=== PATIENT | female | born 1965 | race Caucasian/White ===

== ENCOUNTER 2021-09-09 14:44 | Emergency (ER) | payer BC ==
--- OUTSIDE RECORDS SUMMARY | 2021-09-09 14:49 | XMS REPORT | Continuity of Care Document ---
:[address] [facility] t Address [address] [place] [address] Care Team Providers Name Role Phone JOYCELYN MORIN Primary Care Physician Unavailable EMANUEL Attending Clinician Unavailable ANAND Attending Clinician Unavailable DOROTEO Attending Clinician Unavailable URSS Attending Clinician Unavailable JIMENA Attending Clinician Unavailable Payers Payer Name Policy Type Policy Number Effective Date Expiration Date S billy [facility] [id number] 2019 00:00:00 2020 00:00:00 Problems This patient has no known problems. Allergies, Adverse Reactions, Alerts This patient has no known allergies or adverse reactions. Medications This patient has no known medications. Procedures This patient has no known procedures. Encounters Start End Encounter Admission Attending Care Care Encounter Source Date/Time Date/Time Type Type Clinicians Facility Department ID 2021-09-05 Outpatient EMANUEL, [facility] [id number] [place] 11:40:06 [place]ACE [id number] [facility] 2021-08-09 Outpatient EMANUEL, [facility] [id number] [place] 13:52:21 [place]ACE [id number] [facility] 2021-08-07 Outpatient ANAND, [facility] [id number] [place] 07:44:38 [facility] [id number] [facility] 2021-08-05 Outpatient [facility] [id number] [place] 10:43:54 [facility] 2021-08-01 Outpatient ANAND, [facility] [id number] [place] 16:08:20 [facility] [id number] [facility] 2021-07-17 Outpatient DOROTEO, [facility] [id number] [place] 10:09:25 SAUNDRA [id number] [facility] 2021-07-10 Outpatient [facility] [id number] [place] 15:00:08 [id number] [facility] 2021-07-08 Outpatient [facility] [id number] [place] 15:09:05 [id number] [facility] 2021-06-12 [place] [id number] [place] 01:04:26 PIEDAD [id number] [facility] 2021-06-09 Outpatient [facility] [id number] [place] 01:05:54 [id number] [facility] 2021-06-05 Outpatient JIMENA, [facility] [id number] [place] 10:06:40 REEJU [id number] [facility] 2021-05-24 Outpatient [facility] [id number] [place] 09:26:28 [id number] [facility] 2021-05-21 Outpatient [facility] [id number] [place] 11:56:55 [id number] [facility] 2021-04-26 Outpatient [facility] [id number] [place] 14:04:43 [facility] 2021-04-24 Outpatient DOROTEO, [facility] [id number] [place] 10:41:25 [facility] 2021-04-19 Outpatient [facility] [id number] [place] 09:41:11 [facility] 2021-04-03 Outpatient DOROTEO, [facility] [id number] [place] 10:01:58 [facility] 2021-04-02 Outpatient [facility] [id number] [place] 14:49:57 [facility] 2021-04-01 Outpatient [facility] [id number] [place] 10:41:09 [facility] 2021-04-01 Outpatient DOROTEO, [facility] [id number] [place] 10:25:20 [facility] 2021-03-27 Outpatient [facility] [id number] [place] 16:41:19 [facility] 2018-09-07 Outpatient [id number] 09:10:27 Results This patient has no known results.
[2021-09-09 15:45] LABS: Urine Blood Negative (Negative); Urine Glucose Negative (Negative); Urine Protein 1+ (Negative); Urine pH 6.5 (5.0-7.0)
[2021-09-09] MEDS ORDERED: ONDANSETRON 4 MG/2 ML VIAL ONE ×2 (15:54→23:31)
[2021-09-09] MEDS ORDERED: NA CHLORIDE 0.9% 1,000 ML ONE ×2 (15:54→20:02)
[2021-09-09] MEDS ORDERED: MORPHINE 4 MG/ML SYR ONE ×2 (15:54→17:30)
[2021-09-09 16:24] LABS: Absolute Lymphocytes (CBC) 1.6 K/uL (0.7-4.9); Hematocrit 39.1 % (36.0-45.0); Lymphocytes % 15.7 % (15.3-44.8); MCV 91.8 fL (80-100); MPV 9.7 fL (7.6-11.3); RBC Red Blood Cell Count 4.26 M/uL (3.86-4.86)
[2021-09-09 16:47] LABS: Albumin 3.8 g/dL (3.4-5.0); Bilirubin Total 0.7 mg/dL (0.2-1.0); Protein, Total 7.9 g/dL (6.4-8.2)
[2021-09-09 16:48] LABS: Potassium 2.6 mmol/L (3.5-5.1)
--- NOTE | 2021-09-09 17:41 | RAD REPORT ---
EXAM DESCRIPTION: CT - Abdomen Pelvis W Contrast - 09/09/2021 5:08 pm CLINICAL HISTORY: LLQ abdominal pain COMPARISON: <Comparisons> TECHNIQUE: Biphasic, helical CT imaging of the abdomen and pelvis was performed following 100 ml non -ionic IV contrast. No oral contrast administered. All CT scans are performed using dose optimization technique as appropriate and may include automated exposure control or mA/KV adjustment according to patient size. FINDINGS: No suspicious findings in the lung bases. The liver, spleen, and pancreas show no suspicious findings. Multiple small gallstones are identified . No acute gallbladder finding. No biliary tree dilatation. Symmetric renal function is seen with no hydronephrosis or suspicious renal mass. No pyelonephritis o r acute parenchymal process. No bladder abnormalities. No adrenal abnormalities. Uterus and ovaries s how no acute or suspicious findings. Gastric bypass surgical changes are noted. No acute gastric findings. Duodenum and proximal jejunum s how findings. There are multiple dilated loops of mid and distal jejunum. Patient has a large wide ne ck left flank hernia. Multiple dilated small bowel loops extend into and out of the hernia. The trans ition point is in the left-side of the peritoneal cavity near the opening of the large hernia. There is likely internal hernia or adhesion at this site. A few small mesenteric lymph nodes present. No ob structing small bowel mass. More distally the small bowel loops are decompressed. Cecum sits on the f karlene the pelvis on the right. No acute colon process seen. Sigmoid anastomosis shows no acute finding . Physiologic quantity of free fluid is seen in the cul de sac. Trace amount of free fluid is adjacent to the dilated, herniated small bowel loops. No free air or pneumatosis. No mass or bulky lymphaden opathy. No suspicious bony findings. IMPRESSION: Small bowel obstruction pattern with multiple dilated mid and distal jejunum loops withi n the left side of the peritoneal cavity as well as within the wide neck left flank hernia. Abrupt transition point is present in the left mid abdomen peritoneal cavity near the mouth of the he rnia. Patient likely has an additional internal hernia or adhesion at this site. No obstructing mass in the small bowel. No free air, bowel perforation or other surgically emergent finding. Cholelithiasis with no acute gallbladder finding.
[2021-09-09] MEDS ORDERED: KCL 20 MEQ/100 mL IVPB 100 ML IV ONE (18:04)
[2021-09-09] MEDS ORDERED: NA CHLORIDE 0.9% 500 ML ONE (18:06)
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
[2021-09-09 18:40] LABS: SARS-CoV-2 Antigen Rapid Res Negative (Negative)
[2021-09-09] MEDS ORDERED: HYDROMORPHONE HCL 1 MG/ML INJ ONE ×2 (18:43→20:02)
[2021-09-09] MEDS ORDERED: NA CHLORIDE 0.9% 100 ML ONE (20:03)
[2021-09-09] MEDS ORDERED: PIPERACIL/TAZO 3.375 GM VIAL IV ONE (20:03)
--- NOTE | 2021-09-09 22:02 | RAD REPORT ---
EXAM DESCRIPTION: RAD - Chest Single View - 09/09/2021 9:45 pm CLINICAL HISTORY: NG tube placement COMPARISON: CT study 09/09/2021 TECHNIQUE: AP portable chest image was obtained 09/09/2021 9:45 pm . FINDINGS: NG tube has been placed. Tip is in the proximal stomach. Side hole of the tubing is at the GE junction. No abnormal bend or kink of the tubing.
[2021-09-09] MEDS ORDERED: LORazepam 2 MG/ML VIAL ONE (23:48)
[2021-09-10] MEDS ORDERED: ONDANSETRON 4 MG/2 ML VIAL ONE (00:42)
[2021-09-10] MEDS ORDERED: LIDOCAINE VISCOUS 2% SOLN 15 ML UDC ONE (00:51)
[2021-09-10 01:48] VITALS: TEMP 97.9
[2021-09-10 01:55] VITALS: O2SAT 100
[2021-09-10 02:02] VITALS: BP 173/117
--- NOTE | 2021-09-10 11:38 | RAD REPORT ---
EXAM DESCRIPTION: XR Chest, 1 View CLINICAL HISTORY: The patient is 56 years old and is Female; NG tube TECHNIQUE: Frontal view of the chest. COMPARISON: No relevant prior studies available. FINDINGS: Lungs: Haziness in the left lung base which may be due to overlying soft tissue, atelect asis, or airspace disease. Pleural space: Unremarkable. No pneumothorax. Heart: Unremarkable. Mediastinum: Unremarkable. Bones/joints: Unremarkable. Tubes, lines and devices: Nasogastric tube coursing below the diaphragm with tip overlying the le ft upper quadrant. The sidehole appears to be approximately 5 cm above the GE junction. IMPRESSION: 1. Nasogastric tube coursing below the diaphragm with tip overlying the left upper jurgen drant. The sidehole appears to be approximately 5 cm above the GE junction. 2. Haziness in the left lung base which may be due to overlying soft tissue, atelectasis, or airspa ce disease. Electronically signed by: Sunil Longoria MD 09/10/2021 2:08 AM CDT Due to temporary technical issues with the PACS/Fluency reporting system, reports are being signed by the in house radiologists without review as a courtesy to insure prompt reporting. The interpreting radiologist is fully responsible for the content of the report.
== END 2021-09-10 00:48 | disposition short-term general hospital (02) ==
LOC: ER 14:44
DX: K56.609 Unspecified intestinal obstruction, unspecified as to partial versus complete obstruction (principal); I10 Essential (primary) hypertension
CPT/HCPCS: 85025; 36415; 81003; 83690; 80053; 74177; 71045 ×2; 87811; Q9967; J2543; J3480; J1170 ×2; J7040; J7030 ×2; J2405 ×3; 99285